=== PATIENT | male | born 1990 | race American Indian/Alaskan Native ===

== ENCOUNTER 2018-11-16 20:26 | Emergency (ER) | payer OTHER ==
[2018-11-16] MEDS ORDERED: ULTRAM PO ONE (23:10)
[2018-11-16 23:49] VITALS: BP 126/77
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
== END 2018-11-17 01:10 | disposition home or self-care (01) ==
LOC: ED 20:26
DX: S00.83XA Contusion of other part of head, initial encounter (principal); Z98.890 Other specified postprocedural states; Y04.8XXA Assault by other bodily force, initial encounter; Y93.89 Activity, other specified; Y92.89 Other specified places as the place of occurrence of the external cause; Y99.0 Civilian activity done for income or pay
CPT/HCPCS: 99282